=== PATIENT | female | born 1970 | race Caucasian/White ===

== ENCOUNTER 2024-01-01 07:27 | Emergency (ER) | payer OTHER ==
[~2024-01-01] VITALS: Ht 154.9 cm; Wt 84.5 kg
[2024-01-01 07:28] VITALS: BP 165/76; TEMP 97.4; O2SAT 100
[2024-01-01] MEDS ORDERED: ALBU8.5H (07:40)
[2024-01-01] MEDS ORDERED: MOME13HF7 (07:40)
[2024-01-01] MEDS ORDERED: MONT10TA97 (07:40)
[2024-01-01] MEDS ORDERED: CELE1CAP99 (07:40)
== END 2024-01-01 08:26 | disposition left against medical advice (07) ==
LOC: M ED 08:15
DX: Z53.21 Procedure and treatment not carried out due to patient leaving prior to being seen by health care provider (principal)

== ENCOUNTER → 2024-02-23 | Outpatient (CLI) | payer OTHER ==
[~2024-02-23] MED LIST: ALBU8.5H; CELE1CAP99; MOME13HF7; MONT10TA97
== END ==
LOC: M SLEEP 20:00
PROVIDERS: ATTEND Physician Assistant
DX: G47.33 Obstructive sleep apnea (adult) (pediatric) (principal)

== ENCOUNTER → 2024-04-13 | Outpatient (CLI) | payer OTHER | LOC: M WHC 10:53 | PROVIDERS: ATTEND Internal Medicine Hematology | DX: Z12.31 Encounter for screening mammogram for malignant neoplasm of breast (principal) ==

== ENCOUNTER → 2024-12-14 | Outpatient (CLI) | payer OTHER | LOC: M RAD 14:15 | PROVIDERS: ATTEND Student in an Organized Health Care Education/Training Program | DX: S59.912A Unspecified injury of left forearm, initial encounter (principal); Y93.9 Activity, unspecified; Y92.9 Unspecified place or not applicable ==

== ENCOUNTER → 2024-12-14 | Outpatient (CLI) | payer OTHER ==
[2024-12-14 15:08] LABS: BASO # 0.1 10^3/uL (0.0-0.2); BASO % 0.8 % (0.0-1.0); EOS # 0.1 10^3/uL (0.0-0.5); EOS % 1.5 % (0.0-3.0); HEMATOCRIT 35.1 % (36.0-47.0); HEMOGLOBIN 11.2 g/dl (12.0-15.5); LYMPH # 1.3 10^3/uL (1.5-5.0); LYMPH % 20.9 % (24.0-44.0); MEAN CORPUSCULAR HEMOGLOBIN 29.2 pg (27.0-33.0); MEAN CORPUSCULAR HGB CONC 31.9 g/dl (32.0-36.5); MEAN CORPUSCULAR VOLUME 91.4 fl (80.0-96.0); MONO # 0.5 10^3/uL (0.0-0.8); MONO % 8.7 % (2.0-8.0); NEUTROPHILS # 4.2 10^3/uL (1.5-8.5); NEUTROPHILS % 67.8 % (36.0-66.0); PLATELET COUNT, AUTOMATED 288 10^3/uL (150-450); RED BLOOD COUNT 3.84 10^6/uL (4.00-5.40); WHITE BLOOD COUNT 6.2 10^3/uL (4.0-10.0)
[2024-12-14 15:14] LABS: ALBUMIN 3.8 G/DL (3.2-5.2); ALKALINE PHOSPHATASE 65 U/L (35-104); ALT/SGPT 17 U/L (7.0-40); AST/SGOT 12 U/L (<34); BILIRUBIN,TOTAL 0.4 MG/DL (0.3-1.2); BLOOD UREA NITROGEN 22 MG/DL (9-23); C REACTIVE PROTEIN QUANTITATIV 1.35 MG/DL (<1.0); CALCIUM LEVEL 9.1 MG/DL (8.5-10.1); CARBON DIOXIDE LEVEL 29 MMOL/L (20-31); CHLORIDE LEVEL 109 MMOL/L (98-107); CHOLESTEROL LEVEL 176 MG/DL (<200); CHOLESTEROL RISK RATIO 2.79 (<5); CREATININE FOR GFR 0.83 MG/DL (0.55-1.30); GLOMERULAR FILTRATION RATE > 60.0 (>51); GLUCOSE, FASTING 87 MG/DL (60-100); LDL CHOLESTEROL 99.4 MG/DL (<100); POTASSIUM SERUM 4.8 MMOL/L (3.5-5.1); SODIUM LEVEL 143 MMOL/L (136-145); TOTAL PROTEIN 6.9 G/DL (5.7-8.2); TRIGLYCERIDES LEVEL 68 MG/DL (<150)
[2024-12-14 15:15] LABS: THYROID STIMULATING HORMONE 1.632 uIU/ML (0.55-4.78)
[2024-12-14 15:16] LABS: TOTAL 25(OH) VITAMIN D 38.3 NG/ML (20.0-100.0); VITAMIN B12 LEVEL 828 PG/ML (211-911)
[2024-12-14 15:51] LABS: HEMOGLOBIN A1c 5.5 % (4.0-6.0)
[2024-12-14 17:40] LABS: CREATININE, URINE 113.5 MG/DL; MAU/CREAT RATIO 30.8 MCG/MG (0.0-30.0)
== END ==
LOC: M PLALAB 09:37
PROVIDERS: ATTEND Internal Medicine Hematology
DX: M15.9 Polyosteoarthritis, unspecified (principal)